=== PATIENT | female | born 1945 | race Caucasian/White ===

== ENCOUNTER → 2019-04-05 | Outpatient (CLI) | payer MEDICARE, OTHER | LOC: FB.CLBR 08:00 | PROVIDERS: ATTEND Nurse Practitioner Family | DX: J22 Unspecified acute lower respiratory infection (principal) | CPT/HCPCS: 99213 ==

== ENCOUNTER 2021-12-04 17:38 | Emergency (ER) | payer MEDICARE, OTHER ==
[2021-12-04 18:34] VITALS: BP 183/93; PULSE 93
[2021-12-04 18:48] LABS: ESTIMATED GFR 58 mL/min (>60)
[2021-12-04] MEDS ORDERED: Iopamidol 755 Mg/ML 100 ML Bottle IV ONE (19:18)
[2021-12-04] MEDS ORDERED: Rivaroxaban 15 MG Tab PO ONE (20:30)
== END 2021-12-04 21:00 | disposition home or self-care (01) ==
LOC: FB.ED 17:38
DX: I26.99 Other pulmonary embolism without acute cor pulmonale (principal); M79.662 Pain in left lower leg; R79.89 Other specified abnormal findings of blood chemistry; E78.00 Pure hypercholesterolemia, unspecified; Z88.8 Allergy status to other drugs, medicaments and biological substances; Z79.82 Long term (current) use of aspirin; Z79.899 Other long term (current) drug therapy; Z20.822 Contact with and (suspected) exposure to COVID-19
CPT/HCPCS: 36415; 71275; 80053; 81001; 83880; 84484; 85025; 85379; 85610; 86140; 93005; 99285; A9270; Q9967; U0002; 93010; 99283

== ENCOUNTER 2022-01-07 13:13 | Emergency (ER) | payer MEDICARE, OTHER ==
[2022-01-07 18:57] VITALS: BP 150/76; PULSE 85
== END 2022-01-07 13:47 | disposition home or self-care (01) ==
LOC: FB.ED 13:13
DX: K62.5 Hemorrhage of anus and rectum (principal); E78.00 Pure hypercholesterolemia, unspecified; Z88.8 Allergy status to other drugs, medicaments and biological substances; Z79.82 Long term (current) use of aspirin; Z79.899 Other long term (current) drug therapy; Z79.01 Long term (current) use of anticoagulants
CPT/HCPCS: 96372; 99283; J3430